=== PATIENT | male | born 1940 | race Caucasian/White ===

== ENCOUNTER 2017-02-09 18:14 | Emergency (ER) | payer OTHER, BC ==
[2017-02-09 18:28] VITALS: PULSE 40; RESP 16; TEMP 98.4
--- NOTE | 2017-02-09 18:37 | EDPHY ---
H & P Stated Complaint: left knee pain/ cannot bear weight Time Seen by Provider: 02/09/17 18:25 HPI/ROS: CHIEF COMPLAINT: Left calf pain HISTORY OF PRESENT ILLNESS: The patient is a 76-year-old man who is recovering from a bursitis in his left knee after re-decking his home 1 month ago. He had pain and swelling in his left knee and was seen by his primary diagnosed with bursitis. He has had 2 episodes of physical therapy. His symptoms were improving. This evening he was playing with his dog in the yard and began running along with a dog. After a few steps he had a sudden pop in his left calf muscle and significant pain that caused him to limp. He still has significant pain with toe pointing. No significant pain with simple weight- bearing. No knee pain per se. No swelling or deformity or bruising. REVIEW OF SYSTEMS: Constitutional: denies: chills, fever, recent illness, recent injury EENTM: denies: blurred vision, double vision, nose congestion Respiratory: denies: cough, shortness of breath Cardiac: denies: chest pain, irregular heart rate, lightheadedness, palpitations Gastrointestinal/Abdominal: denies: abdominal pain, diarrhea, nausea, vomiting, blood streaked stools Genitourinary: denies: dysuria, frequency, hematuria, pain Musculoskeletal: See HPI Skin: denies: lesions, rash, jaundice, bruising Neurological: denies: headache, numbness, paresthesia, tingling, dizziness, weakness Hematologic/Lymphatic: denies: blood clots, easy bleeding, easy bruising Immunologic/allergic: denies: HIV/AIDS, transplant EXAM: GENERAL: Well-appearing, well-nourished and in no acute distress. HEAD: Atraumatic, normocephalic. EYES: Pupils equal round and reactive to light, extraocular movements intact, sclera anicteric, conjunctiva are normal. ENT: TMs normal, nares patent, oropharynx clear without exudates. Moist mucous membranes. NECK: Normal range of motion, supple without lymphadenopathy or JVD. LUNGS: Breath sounds clear to auscultation bilaterally and equal. No wheezes rales or rhonchi. HEART: Regular rate and rhythm without murmurs, rubs or gallops. ABDOMEN: Soft, nontender, normoactive bowel sounds. No guarding, no rebound. No masses appreciated. BACK: No CVA tenderness, no spinal tenderness, step-offs or deformities EXTREMITIES: Pain in left calf with plantar flexion. No pain with dorsiflexion. No tenderness. No swelling. No bruising or deformity. No erythema. No swelling of the knee. No laxity or pain with axial loading. NEUROLOGICAL: Cranial nerves II through XII grossly intact. Normal speech, normal gait. 5/5 strength, normal movement in all extremities, normal sensation PSYCH: Normal mood, normal affect. SKIN: Warm, dry, normal turgor, no visible rashes or lesions. Source: Patient Exam Limitations: No limitations - Medical/Surgical History Hx Asthma: No Hx Chronic Respiratory Disease: No Hx Diabetes: No Hx Cardiac Disease: No Hx Renal Disease: No Hx Cirrhosis: No Hx Alcoholism: No Other PMH: hypertention - Family History Significant Family History: No pertinent family hx - Social History Alcohol Use: Sober Drug Use: None Constitutional: Initial Vital Signs Temperature (C) 36.9 C 02/09/17 18:25 Heart Rate 40 L 02/09/17 18:25 Respiratory Rate 16 02/09/17 18:25 Blood Pressure 139/80 H 02/09/17 18:25 O2 Sat (%) 94 02/09/17 18:25 O2 Delivery Mode Room Air Allergies/Adverse Reactions: No Known Allergies Allergy (Unverified 02/09/17 18:32) Home Medications: Medication Instructions Recorded Amlodipine Besylate 02/09/17 Atorvastatin Calcium 02/09/17 Clopidogrel Bisulfate 02/09/17 FLUoxetine 02/09/17 Medical Decision Making - Diagnostics Imaging Results: Imaging Impressions Knee X-Ray 02/09/17 18:34 Impression: 1. No acute fracture or effusion. 2. Minimal osteoarthritis. Imaging: Discussed imaging studies w/ professor of law Radiologist ED Course/Re-evaluation: I suspect that the patient tore his calf muscle when it had been partially atrophied and he began running. We will obtain an x-ray to rule out knee fractures. This does not sound consistent with a DVT. He has not had any swelling. This was sudden onset during exercise. He has not had any recent travel. He does not smoke. No recent procedures. No hormone replacement. 7:20 p.m. we had a long discussion about the patient's x-ray. I suspect patient tore his calf her soleus muscle. They told him to expect bruising and swelling. Encouraged ice. We will give him crutches to and told him to be weight-bearing as tolerated. I will have him follow up with Orthopedics. He is agree with this plan. They will take Tylenol for pain control. Differential Diagnosis: Partial list of the Differential diagnosis considered include but were not limited to; muscle strain, ligamentous injury and although unlikely based on the history and physical exam, I also considered fracture, dislocation, vascular injury, DVT. I discussed these differential diagnoses and the plan with the patient as well as the usual and expected course. The patient understands that the diagnosis is provisional and that in medicine we are not always correct and that further workup is often warranted. Usual and customary warnings were given. All of the patient's questions were answered. The patient was instructed to return to the emergency department should the symptoms at all worsen or return, otherwise to followup with the physician as we discussed. Departure - Departure Disposition: Home, Routine, Self-Care Clinical Impression: Muscle strain of left lower leg Qualifiers: Encounter type: initial encounter Qualified Code(s): S86.912A - Strain of unspecified muscle(s) and tendon(s) at lower leg level, left leg, initial encounter Condition: Fair Instructions: Muscle Strain (ED) Referrals: Ry Woodruff MD [Medical Doctor] - 5-7 days, if not improved
[2017-02-09 19:50] VITALS: BP 125/72; O2SAT 92
== END 2017-02-09 19:45 | disposition home or self-care (01) ==
LOC: CED 18:14
DX: S86.912A Strain of unspecified muscle(s) and tendon(s) at lower leg level, left leg, initial encounter (principal); I10 Essential (primary) hypertension; X58.XXXA Exposure to other specified factors, initial encounter; Y92.007 Garden or yard of unspecified non-institutional (private) residence as the place of occurrence of the external cause; Y99.8 Other external cause status; Y93.02 Activity, running
CPT/HCPCS: 73562-PO

== ENCOUNTER → 2017-03-18 | Outpatient (CLI) | payer OTHER, BC | LOC: BHFA 10:30 | PROVIDERS: ATTEND Internal Medicine Cardiovascular Disease | DX: R94.31 Abnormal electrocardiogram [ECG] [EKG] (principal) ==

== ENCOUNTER 2017-04-08 08:50 | Observation (INO) | payer OTHER, BC ==
[2017-04-08] MEDS ORDERED: diphenhydrAMINE 25 MG CAP PO ONE (08:52)
[2017-04-08] MEDS ORDERED: NS 1,000 ML IV ONE (08:52)
[2017-04-08] MEDS ORDERED: DIAZEPAM 5 MG TAB PO ONE (08:52)
[2017-04-08] MEDS ORDERED: BACITRACIN IRRIGATION/NS 50,000 UNITS/1,000 ML BTL IRR ONE (08:52)
[2017-04-08] MEDS ORDERED: ceFAZolin 2 GM/SWFI 2 GM/20 ML SYR IVP ONE (08:52)
[2017-04-08] MEDS ORDERED: LIDOCAINE 1% 300 MG/30 ML SDV ONE (08:53)
[2017-04-08] MEDS ORDERED: fentaNYL 100 MCG/2 ML INJ ONE (08:53)
[2017-04-08] MEDS ORDERED: IOPAMIDOL (ISOVUE-300) 50 ML VIAL ONE (08:53)
[2017-04-08] MEDS ORDERED: MIDAZOLAM 2 MG/2 ML VIAL ONE (08:53)
[2017-04-08] MEDS ORDERED: BUPIVACAINE 0.5% 30 ML SDV ONE (08:54)
[2017-04-08] MEDS ORDERED: LIDO/EPI 1% **for epidural** 30 ML SDV ONE (08:54)
--- NOTE | 2017-04-08 09:18 | CPEKG ---
Heart Rate: 50 RR Interval: 1200 QRSD Interval: 116 QT Interval: 492 QTC Interval: 449 QRS [place]: -69 T Wave [place]: -14 EKG Severity - ABNORMAL ECG - EKG Impression: Complete AV dissociation Electronically Signed By: Torsten Harrington 08-Apr-2017 17:51:25
[2017-04-08 09:38] LABS: PLATELET COUNT 224 10^3/uL (150-400)
[2017-04-08 09:44] LABS: INR 0.98 (0.83-1.16); PROTIME(PATIENT) 13.2 SEC (12.0-15.0)
--- NOTE | 2017-04-08 09:52 | PDHPUP ---
History & Physical Update H&P update statement: This history and physical update is based on an assessment of the patient which was completed after admission or registration (within 24 hours), but prior to the surgery/procedure. H&P update: H&P reviewed & patient examined, no change in patient's condition since H&P completed
--- NOTE | 2017-04-08 09:53 | PDPROPOC ---
Sedation Plan of Care Sedation Plan of Care: vital signs stable, mental status noted, patient educated of risks, benefits, alternatives, patient can tolerate sedation ASA Classification: ASA 3 Planned drugs: fentanyl, midazolam Mallampati Score: Class 3 Mallampati Reference Image: Patient passed 3-3-2 rule?: Yes
--- NOTE | 2017-04-08 10:16 | EPPROC ---
Electrophysiology Procedure Note: PROCEDURE: MRI conditional dual-chamber pacemaker insertion. DATE OF PROCEDURE: 04/08/2017 DEVICE: Implanted is an Edora 8 KENNEY Zee [id number], serial # [id number]. MRI conditional device. LEADS: The atrial lead is a Solia [id number], serial # [id number]. The ventricular lead is a Solia [id number], serial # [id number]. COMPLICATIONS: None. 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 PROCEDURE IN DETAIL: After informed consent was obtained and n.p.o. status was confirmed, the region of the left subclavicular fossa was cleaned, prepped and draped in a sterile fashion. Approximately 30 mL of 1% lidocaine was utilized for local anesthesia. The skin was sharply incised with a #10 blade. Electrocautery and local pressure were used for hemostasis. Sharp and blunt dissection was used to form a pacemaker pocket overlying the pectoralis major fascia. An 18-gauge Cook needle was used to gain access to the left subclavian vein x 2. J wires were advanced into the inferior vena cava. A 6-F peel-away sheath was advanced over the lateral wire. Wire and stylet were removed. Ventricular lead was manipulated with care into the RV apex under direct fluoroscopic guidance and screwed into place. Threshold was tested and found to be 0.8 V at 0.4 ms width. R-wave amplitude was measured at 10.90 mV. Lead impedance was 760 Ohms. The lead was sutured in place with #0 Ethibond. The medial wire was used to place a second peel-away sheath wire and dilator was removed and a second pacer lead was manipulated with care into the right atrial appendage and screwed into place. The threshold was 1.2 V at 0.4 ms width. P-wave amplitude was 3.1 mV, lead impedance was 507 Ohms. The peel away sheath was removed and the leads were sutured in place with a #0 Ethibond. The pocket was thoroughly flushed and checked for bleeding. Hemostasis was established. The antibiotic soaked gauze was removed from the pocket. The atrial lead serial number was checked and placed in the upper pole lead housing of the pulse generator and set screw firmly applied. The procedure was repeated for the RV lead in lower pole lead housing. The device was placed in the pocket and sutured in place with #0 Ethibond. The skin was closed with a 3-layered 3-0 Vicryl, 2-0 Vicryl and 4-0 Monocryl repair with excellent wound edge opposition and hemostasis documented. The patient returned to the post cath recovery unit in good and stable condition where a stat postoperative chest x-ray and EKG will be obtained. FINAL IMPRESSION: Successful dual-chamber pacemaker insertion without immediate complication.
--- NOTE | 2017-04-08 12:05 | CPEKG ---
Heart Rate: 60 RR Interval: 1000 P-R Interval: 160 QRSD Interval: 112 QT Interval: 444 QTC Interval: 444 QRS [place]: -65 T Wave [place]: 0 EKG Severity - ABNORMAL ECG - EKG Impression: ATRIAL-PACED RHYTHM EKG Impression: LEFT ANTERIOR FASCICULAR BLOCK Electronically Signed By: Torsten Harrington 08-Apr-2017 17:48:47
[2017-04-08 20:45] VITALS: PULSE 60
[2017-04-08] MEDS ORDERED: FLUoxetine 20 MG CAP PO SCH (21:00)
[2017-04-09 04:17] LABS: PLATELET COUNT 215 10^3/uL (150-400)
[2017-04-09 07:30] VITALS: BP 133/89; RESP 12; TEMP 98.1; O2SAT 95
--- NOTE | 2017-04-09 08:55 | CPEKG ---
Heart Rate: 61 RR Interval: 984 P-R Interval: 162 QRSD Interval: 102 QT Interval: 420 QTC Interval: 423 P [place]: -25 QRS [place]: -77 T Wave [place]: 19 EKG Severity - ABNORMAL ECG - EKG Impression: ATRIAL-PACED COMPLEXES EKG Impression: LEFT ANTERIOR FASCICULAR BLOCK Electronically Signed By: Torsten Harrington 09-Apr-2017 10:46:36
[2017-04-09] MEDS ORDERED: CHOLECALCIFEROL VIT D3 1,000 UNITS TAB PO SCH (09:00)
[2017-04-09] MEDS ORDERED: CLOPIDOGREL BISULFATE 75 MG TAB PO SCH (09:00)
[2017-04-09] MEDS ORDERED: ATORVASTATIN CALCIUM 40 MG TAB PO SCH (09:00)
[2017-04-09] MEDS ORDERED: MAGNESIUM OXIDE 400 MG TAB PO SCH (09:00)
[2017-04-09] MEDS ORDERED: NON-FORMULARY NEW DRUG (Amlodipine Besylate/Benazepril [Lotrel 10-20 Mg] 1 EACH) PO SCH (09:00)
[2017-04-09] MEDS ORDERED: Herbals/Supplements -Info Only PO SCH (09:00)
[2017-04-09] MEDS ORDERED: AMLODIPINE BESYLATE 5/BENAZEPRIL 10MG 1 EACH CAP PO SCH (09:00)
--- NOTE | 2017-04-11 16:56 | GDS ---
[f rep st] DISCHARGE SUMMARY ADMIT DIAGNOSES: 1. Planned permanent pacemaker placement. 2. Sick sinus syndrome and new junctional escape rhythm. DISCHARGE DIAGNOSES: 1. Placement of MRI conditional permanent pacemaker. 2. Sick sinus syndrome. 3. Junctional escape rhythm. 4. Known coronary artery disease. COURSE OF HOSPITALIZATION: This gentleman was seen in clinic by Dr. Jared Franklin on March 31, 2017 , with history of coronary artery disease, carotid artery disease, dyslipidemia, hypertension, and ob structive sleep apnea. He had worn a Holter monitor that was reviewed with him, showing junctional e scape rhythm. It was recommended to proceed with permanent pacemaker placement. The patient was in agreement with this plan. He was taken to the labor relations worker by Dr. Jared Franklin on April 08, 2017, whe re he was able to successfully implanted the pacemaker with no complications. He was taken to PCU fo r overnight recovery where he has done well. Pacemaker site is intact with no bleeding, induration, or pain. Left arm restrictions were reviewed with him and his with good understanding. EKG funmi ws a sinus rhythm. At this time, he currently is stable for discharge. ALLERGIES: He has no known allergies. DISCHARGE MEDICATIONS: Prozac 20 mg at bedtime, Lotrel 10/20 one tablet daily, Lipitor 40 mg daily, Plavix 75 mg daily, magnesium oxide 400 mg daily, herbal supplements 1 daily, vitamin D3 at 1000 unit s daily. PHYSICAL EXAMINATION: VITAL SIGNS: On day of discharge, blood pressure 124/84, heart rate 60. Oxyg en saturation 93% with CPAP. Temperature 36.9 Celsius. EKG shows a paced regular rhythm. PROCEDURE: Electrophysiology procedure on 04/08/2017: MRI conditional dual chamber pacemaker insert ion. Device implanted, an Edora 8 KENNEY Zee [id number], serial number [id number], MRI conditional device . There were no complications. DEVICE INDICATION: Sick sinus syndrome and junctional escape rhythm secondary to second-degree type 2 AV block. FINAL IMPRESSION: Successful dual-chamber placement with no complications. DISCHARGE PLAN: 1. Pacemaker precautions for 4-6 weeks: Avoid lifting left arm above shoulder level. No left arm l ifting greater than 10 pounds. 2. Use sling at night. 3. Avoid shower to the area for 3 days. 4. Follow up in clinic for pacemaker check and wound check in 1 week. 5. Follow up with Dr. Franklin in 4 weeks. /[id number]/MODL
== END 2017-04-09 12:40 | disposition home or self-care (01) ==
LOC: FCATH 08:50 → F2W 11:26
PROVIDERS: ADMIT Internal Medicine Cardiovascular Disease; ATTEND Internal Medicine Cardiovascular Disease
DX: I49.5 Sick sinus syndrome (principal); I67.2 Cerebral atherosclerosis; I25.10 Atherosclerotic heart disease of native coronary artery without angina pectoris; I10 Essential (primary) hypertension; E78.5 Hyperlipidemia, unspecified; G47.33 Obstructive sleep apnea (adult) (pediatric)
CPT/HCPCS: 33208; 71045; 71046; 93005; C1785; C1898; J0690; J2250; J3010; Q9967

== ENCOUNTER 2018-01-20 12:10 | Emergency (ER) | payer OTHER, BC ==
--- NOTE | 2018-01-20 13:52 | EDPHY ---
H & P Stated Complaint: cough/fever Time Seen by Provider: 01/20/18 12:39 HPI/ROS: CHIEF COMPLAINT: Cough, fever HISTORY OF PRESENT ILLNESS: 77-year-old male with hypertension presents with cough and fever. Onset of a moist cough 2 weeks ago. Gradually increasing cough, now productive of greenish sputum. Saw his PCP 1 week ago and was given a prescription for Zithromax. Started Zithromax 5 days ago because of fever and chills. Has now completed the course of Zithromax. Continues to have a productive cough, fever and chills. Feels short of breath with exertion. Tolerating oral fluids well, no vomiting or diarrhea. No prior history of pneumonia. REVIEW OF SYSTEMS: complete 10 point ROS reviewed and is negative except for the noted elements in the HPI - Personal History Current Tetanus/Diphtheria Vaccine: Yes - Medical/Surgical History Hx Asthma: No Hx Chronic Respiratory Disease: No Hx Diabetes: No Hx Cardiac Disease: No Hx Renal Disease: No Hx Cirrhosis: No Hx Alcoholism: No Hx HIV/AIDS: No Hx Splenectomy or Spleen Trauma: No Other PMH: hypertention - Social History Smoking Status: Never smoked Alcohol Use: Sober Drug Use: None Additional Social History: - Physical Exam Exam: General Appearance: Alert, pleasant, nontoxic-appearing Eyes: Pupils equal and round, no conjunctival pallor or injection ENT, Mouth: Mucous membranes moist Neck: Normal inspection Respiratory: Rhonchi and wheezing left lower lobe Cardiovascular: Regular rate and rhythm Gastrointestinal: Abdomen is soft and nontender Neurological: A&O, nonfocal, normal gait Skin: Warm and dry, no rash Extremities: Nontender, no pedal edema Psychiatric: Mood and affect normal Constitutional: Initial Vital Signs Temperature (C) 37.0 C 01/20/18 12:16 Heart Rate 79 01/20/18 12:16 Respiratory Rate 18 01/20/18 12:16 Blood Pressure 112/71 01/20/18 12:16 O2 Sat (%) 94 01/20/18 12:16 O2 Delivery Mode Room Air Allergies/Adverse Reactions: No Known Allergies Allergy (Unverified 01/20/18 12:19) Home Medications: Medication Instructions Recorded AMLODIPINE BESYLATE/BENAZEPRIL 1 each PO DAILY 02/09/17 [Lotrel 10-20 mg] Atorvastatin Calcium [Lipitor 40 40 mg PO DAILY 02/09/17 mg (*)] Clopidogrel Bisulfate [Plavix (*)] 75 mg PO DAILY 02/09/17 FLUoxetine [Prozac 20 MG (*)] 20 mg PO HS 02/09/17 Cholecalciferol Vit D3 [Vitamin D3 1,000 units PO DAILY 04/01/17 (*)] Herbals/Supplements -Info Only 1 ea PO DAILY 04/01/17 Magnesium Oxide [Magnesium Oxide 400 mg PO DAILY 04/01/17 400 mg (*)] Benzonatate [Tessalon Pearles (RX)] 100 mg PO TID PRN #15 cap 01/20/18 levOFLOXACIN [levAQUIN (*)] 750 mg PO DAILY #9 tab 01/20/18 Medical Decision Making - Diagnostics Imaging Results: Imaging Impressions Chest X-Ray 01/20/18 12:37 Impression: Bibasilar pneumonia versus atelectasis. Imaging: I viewed and interpreted images myself ED Course/Re-evaluation: This patient presents with persistent cough and fever after a course of Zithromax. Vital signs are normal, including oxygen saturation of 93% on room air. Chest x-ray reveals bilateral basilar infiltrates, consistent with pneumonia. Discussed with the patient and his at length, including admission versus discharge home. The patient strongly prefers to go home. Oxygen saturation remained 90%+ with ambulation. Warning signs discussed and agrees to return for worsening symptoms. Levaquin 750 mg orally given in the emergency department as well as a prescription for Zithromax. Departure - Departure Disposition: Home, Routine, Self-Care Clinical Impression: Pneumonia Qualifiers: Pneumonia type: due to unspecified organism Laterality: bilateral Lung location : lower lobe of lung Qualified Code(s): J18.1 - Lobar pneumonia, unspecified organism Condition: Good Instructions: Bacterial Pneumonia (ED) Additional Instructions: Return for worsening symptoms, including shortness of breath, persistent fever or any concerns. Follow-up in 1-2 days for recheck. Drink plenty of fluids. Referrals: Lizabeth Ho MD [Primary Care Provider] - As per Instructions Prescriptions: Benzonatate [Tessalon Pearles (RX)] 100 mg PO TID PRN #15 cap PRN Reason: cough levOFLOXACIN [levAQUIN (*)] 750 mg PO DAILY #9 tab
[2018-01-20] MEDS ORDERED: BENZONATATE 100 MG CAP PO ONE ×2 (14:12→14:14)
[2018-01-20 14:20] VITALS: BP 113/76
== END 2018-01-20 14:20 | disposition home or self-care (01) ==
DX: J18.1 Lobar pneumonia, unspecified organism (principal); I10 Essential (primary) hypertension; Z79.2 Long term (current) use of antibiotics